=== PATIENT | female | born 1995 | race Caucasian/White ===

== ENCOUNTER 2017-08-02 21:18 | Emergency (ER) | payer BC ==
[~2017-08-02] VITALS: Ht 167.6 cm; Wt 124.4 kg
[2017-08-02 21:22] VITALS: BP 146/73
[2017-08-02] MEDS ORDERED: DIPHENHYDRAMINE 50 MG CAPSULE ONE (21:43)
[2017-08-02] MEDS ORDERED: FAMOTIDINE 20 MG TABLET ONE (21:43)
[2017-08-02] MEDS ORDERED: DIPHENHYDRAMINE 25 MG CAPSULE PO ONE (22:00)
[2017-08-02] MEDS ORDERED: FAMOTIDINE 20 MG TABLET PO ONE (22:00)
== END 2017-08-02 23:03 | disposition home or self-care (01) ==
LOC: ED 22:57
DX: T78.3XXA Angioneurotic edema, initial encounter (principal); L50.0 Allergic urticaria; Z87.891 Personal history of nicotine dependence; X58.XXXA Exposure to other specified factors, initial encounter; Y93.89 Activity, other specified; Y92.89 Other specified places as the place of occurrence of the external cause; Y99.8 Other external cause status
CPT/HCPCS: 99284; J7512; Q0163

== ENCOUNTER 2017-11-13 10:11 | Emergency (ER) | payer BC ==
[~2017-11-13] VITALS: Ht 167.6 cm; Wt 131.6 kg
[2017-11-13] MEDS ORDERED: GLAT40SY SQ (10:51)
[2017-11-13 11:28] LABS: INTERNATIONAL NORMALIZED RATIO 0.96 (0.93-1.1)
[2017-11-13 11:31] LABS: ALANINE AMINOTRANSFERASE 82 U/L (12-78); ALBUMIN 3.4 g/dL (3.4-5.0); ANION GAP 6 mmol/L (5-15); CALCIUM 8.1 mg/dL (8.5-10.1); CHLORIDE 111 mmol/L (98-107); CREATININE 0.86 mg/dL (0.55-1.02)
[2017-11-13 11:33] LABS: ALKALINE PHOSPHATASE 110 U/L (45-117); BILIRUBIN,TOTAL 0.3 mg/dL (0.2-1.0); TOTAL PROTEIN 7.1 g/dL (6.4-8.2)
[2017-11-13 11:53] LABS: BASOPHILS # (AUTO) 0.05 x10^3/uL (0-0.1); BASOPHILS % (AUTO) 1 % (0-1); EOSINOPHILS # (AUTO) 0.25 x10^3/uL (0-0.4); EOSINOPHILS % (AUTO) 3 % (1-7); LYMPHOCYTES # (AUTO) 2.57 x10^3/uL (1-3.4); LYMPHOCYTES % (AUTO) 30 % (22-44); MD SCAN; MEAN CORPUSCULAR HEMOGLOBIN 31.2 pg (27.0-34.8); MEAN CORPUSCULAR HGB CONC 34.2 g/dL (32.4-35.8); MEAN CORPUSCULAR VOLUME 91.2 fL (80-100); MEAN PLATELET VOLUME 10.7 fL (7.4-10.4); MONOCYTES # (AUTO) 0.64 x10^3/uL (0.2-0.8); MONOCYTES % (AUTO) 8 % (2-9); NEUTROPHILS # (AUTO) 4.94 x10^3/uL (1.8-6.8); NEUTROPHILS % (AUTO) 59 % (42-75); PLATELET COUNT 232 x10^3/uL (130-400); RED BLOOD COUNT 4.85 x10^6/uL (3.82-5.3); RED CELL DISTRIBUTION WIDTH 14.3 % (9.6-15.2)
[2017-11-13] MEDS ORDERED: SODIUM CHLORIDE FLUSH 10ML SYR IVF ONE (12:00)
[2017-11-13] MEDS ORDERED: SODIUM CHLORIDE 0.9% 1,000ML IVBOLUS ONE (12:00)
[2017-11-13] MEDS ORDERED: OMNIPAQUE 350 MG/ML, 150 ML BOTTLE ONE (13:45)
[2017-11-13 14:06] LABS: CLOSTRIDIUM DIFFICILE ANTIGEN NEGATIVE; CLOSTRIDIUM DIFFICILE TOXIN NEGATIVE (Negative)
[2017-11-13 14:34] VITALS: BP 118/59
== END 2017-11-13 14:45 | disposition home or self-care (01) ==
LOC: ED 10:45
DX: K57.10 Diverticulosis of small intestine without perforation or abscess without bleeding (principal); K92.1 Melena
CPT/HCPCS: 36415; 74177; 80053; 83690; 85025; 85610; 85730; 87324; 89055; 96360; 99285; J7030; Q9967

== ENCOUNTER 2018-10-20 00:26 | Emergency (ER) | payer BC ==
[~2018-10-20] VITALS: Ht 165.1 cm; Wt 121.3 kg
[~2018-10-20 00:26] MED LIST: GLAT40SY SQ
[2018-10-20 00:33] VITALS: BP 119/76
[2018-10-20] MEDS ORDERED: DIME240C PO (00:50)
[2018-10-20] MEDS ORDERED: DIPHENHYDRAMINE 25 MG CAPSULE PO ONE (01:00)
[2018-10-20] MEDS ORDERED: DEXAMETHASONE 4 MG TABLET PO ONE (01:00)
--- NOTE | 2018-10-20 01:00 | NUR ---
PT PRESENTED WITH LEFT SIDED LIP SWELLING AND GENERALIZED RASH. PT STATED SHE "TOOK AMOXICILLIN FOR SINUS INFECTION 2 DAYS AGO AND GOT SWELLING TO EYES THE FIRST DAY, THEN ITCHY, NOW TODAY GOT SWELLING ON LIP" DENIES ANY RESP DISTRESS, SOB. MONITOR APPLIED, SIDERAILS UP X2, CALL LIGHT WITHIN REACH.
[2018-10-20] MEDS ORDERED: DIPHENHYDRAMINE 25 MG CAPSULE ONE (01:01)
[2018-10-20] MEDS ORDERED: DEXAMETHASONE 4 MG TABLET ONE (01:02)
--- NOTE | 2018-10-20 01:06 | NUR ---
PT MEDICATED PER MAR
== END 2018-10-20 01:24 | disposition home or self-care (01) ==
LOC: ED 01:00
DX: L50.0 Allergic urticaria (principal)
CPT/HCPCS: 99283; Q0163

== ENCOUNTER 2018-11-01 03:11 | Emergency (ER) | payer BC ==
[~2018-11-01 03:11] MED LIST changes: +DIME240C PO
--- NOTE | 2018-11-01 03:27 | NUR ---
PT C/O SWOLLEN LIPS. IT STARTED AROUND NOON YESTERDAY. PT REPORTS SHE IS TAKING HER TECFIDERA AGAIN. "THIS HAPPENED TO ME TWO WEEKS AGO." NO AIRWAY COMPROMISE AT THIS TIME. VS STABLE. DR GILLIAM HAS SEEN PATIENT. CALL LIGHT IN PLACE. WILL CONTINUE TO MONITOR.
[2018-11-01] MEDS ORDERED: DIPHENHYDRAMINE 50 MG/ML, 1ML IVPush ONE (03:30)
[2018-11-01] MEDS ORDERED: methylPREDNISolone SOD SUCC 125 MG/2 ML IVPush ONE (03:30)
[2018-11-01] MEDS ORDERED: FAMOTIDINE 20 MG/2 ML IVPush ONE (03:30)
[2018-11-01] MEDS ORDERED: EPINEPHRINE 1 MG/ML, 1ML SQ ONE (03:30)
[2018-11-01] MEDS ORDERED: DIPHENHYDRAMINE 50 MG/ML, 1ML ONE (03:32)
[2018-11-01] MEDS ORDERED: methylPREDNISolone SOD SUCC 125 MG/2 ML ONE (03:32)
[2018-11-01] MEDS ORDERED: FAMOTIDINE 20 MG/2 ML ONE (03:32)
[2018-11-01] MEDS ORDERED: EPINEPHRINE 1 MG/ML, 1ML ONE (03:44)
[2018-11-01 04:08] LABS: BASOPHILS # (AUTO) 0.03 x10^3/uL (0-0.1); BASOPHILS % (AUTO) 0 % (0-1); EOSINOPHILS # (AUTO) 0.13 x10^3/uL (0-0.4); EOSINOPHILS % (AUTO) 1 % (1-7); LYMPHOCYTES # (AUTO) 2.39 x10^3/uL (1-3.4); LYMPHOCYTES % (AUTO) 24 % (22-44); MD NO; MEAN CORPUSCULAR HEMOGLOBIN 30.6 pg (27.0-34.8); MEAN CORPUSCULAR HGB CONC 34.3 g/dL (32.4-35.8); MEAN CORPUSCULAR VOLUME 89.2 fL (80-100); MONOCYTES # (AUTO) 0.55 x10^3/uL (0.2-0.8); MONOCYTES % (AUTO) 6 % (2-9); NEUTROPHILS # (AUTO) 6.82 x10^3/uL (1.8-6.8); NEUTROPHILS % (AUTO) 69 % (42-75); PLATELET COUNT 180 x10^3/uL (130-400); RED BLOOD COUNT 4.77 x10^6/uL (3.82-5.3); RED CELL DISTRIBUTION WIDTH 13.9 % (9.6-15.2)
[2018-11-01 04:09] LABS: ALBUMIN 3.9 g/dL (3.4-5.0); ANION GAP 8 mmol/L (5-15); CALCIUM 8.8 mg/dL (8.5-10.1); CHLORIDE 111 mmol/L (98-107); CREATININE 0.73 mg/dL (0.55-1.02)
--- NOTE | 2018-11-01 04:10 | NUR ---
PT RESTING ROOM. REGULAR RESP. NO ACUTE DISTRESS NOTED. 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 FAMILY AT BEDSIDE. CALL LIGHT IN PLACE. WILL CONTINUE TO MONITOR.
--- NOTE | 2018-11-01 04:44 | NUR ---
PT RESTING IN ROOM. SOME SWELLING IN LIPS HAS GONE DOWN. MOTHER AT BEDSIDE. NO ACUTE DISTRESS NOTED. VS STABLE. WILL CONTINUE TO MONITOR.
[2018-11-01 05:16] VITALS: BP 116/63
--- NOTE | 2018-11-01 05:16 | NUR ---
PT RESTING IN ROOM. NO ACUTE DISTRESS NOTED. FAMILY AT BEDSIDE. BALLOON DIPPER ON. WILL CONTINUE TO MONITOR.
--- NOTE | 2018-11-01 05:40 | NUR ---
DR ALLEN HAD UPDATED PATIENT PATIENT READY FOR D/C
== END 2018-11-01 05:42 | disposition home or self-care (01) ==
LOC: ED 04:58
DX: T78.3XXA Angioneurotic edema, initial encounter (principal); Z87.19 Personal history of other diseases of the digestive system
CPT/HCPCS: 36415; 80048; 82040; 84703; 85025; 96372; 96374; 96375; 99283; J0171; J1200; J2930; J3490

== ENCOUNTER 2018-12-02 20:59 | Emergency (ER) | payer BC ==
[~2018-12-02] VITALS: Ht 167.6 cm; Wt 119.0 kg
[2018-12-02 21:11] VITALS: BP 116/69
[2018-12-02 21:54] LABS: MEAN CORPUSCULAR HGB CONC 32.6 g/dL (32.4-35.8); MEAN CORPUSCULAR VOLUME 88.8 fL (80-100); MEAN PLATELET VOLUME 11.1 fL (7.4-10.4); PLATELET COUNT 137 x10^3/uL (130-400); RED BLOOD COUNT 5.07 x10^6/uL (3.82-5.3); RED CELL DISTRIBUTION WIDTH 13.8 % (9.6-15.2)
[2018-12-02 21:59] LABS: ALBUMIN 3.9 g/dL (3.4-5.0); ANION GAP 4 mmol/L (5-15); CALCIUM 8.8 mg/dL (8.5-10.1); CHLORIDE 109 mmol/L (98-107); CREATININE 1.07 mg/dL (0.55-1.02)
[2018-12-02 22:05] LABS: ALANINE AMINOTRANSFERASE 30 U/L (12-78); ALKALINE PHOSPHATASE 108 U/L (45-117); BILIRUBIN,TOTAL 0.4 mg/dL (0.2-1.0); TOTAL PROTEIN 7.8 g/dL (6.4-8.2)
--- NOTE | 2018-12-02 22:47 | NUR ---
pt to room from lobby
[2018-12-02 22:48] LABS: BASOPHILS # (AUTO) 0.04 x10^3/uL (0-0.1); BASOPHILS % (AUTO) 0 % (0-1); EOSINOPHILS # (AUTO) 0.14 x10^3/uL (0-0.4); EOSINOPHILS % (AUTO) 1 % (1-7); LYMPHOCYTES # (AUTO) 2.19 x10^3/uL (1-3.4); LYMPHOCYTES % (AUTO) 22 % (22-44); MD SCAN; MONOCYTES # (AUTO) 0.66 x10^3/uL (0.2-0.8); MONOCYTES % (AUTO) 7 % (2-9); NEUTROPHILS # (AUTO) 7.11 x10^3/uL (1.8-6.8); NEUTROPHILS % (AUTO) 70 % (42-75)
--- NOTE | 2018-12-02 23:53 | NUR ---
CT PENDING NEGATIVE HCG
[2018-12-03 00:07] LABS: HCG UR SG 1.024 (1.003-1.030)
[2018-12-03 00:08] LABS: CULTURE INDICATED? YES; MICROSCOPIC INDICATED
== END 2018-12-03 01:45 | disposition home or self-care (01) ==
LOC: ED 23:58
DX: R10.32 Left lower quadrant pain (principal)
CPT/HCPCS: 36415; 74176; 80053; 81001; 81025; 83690; 85025; 87086; 99284

== ENCOUNTER → 2019-10-02 | Outpatient (CLI) | payer BC ==
[~2019-10-02] MED LIST changes: +GADOTERATE 10 MMOL/20 ML SYR ONE; +OMNIPAQUE 350 MG/ML, 100ML BOTTLE ONE
== END | disposition home or self-care (01) ==
LOC: RAD 11:01
PROVIDERS: ATTEND Nurse Practitioner Family
DX: M47.812 Spondylosis without myelopathy or radiculopathy, cervical region (principal); M51.24 Other intervertebral disc displacement, thoracic region; N85.8 Other specified noninflammatory disorders of uterus; G93.9 Disorder of brain, unspecified; G35 Multiple sclerosis; G95.9 Disease of spinal cord, unspecified; Z97.5 Presence of (intrauterine) contraceptive device
CPT/HCPCS: 70553; 72156; 72157; 74177; A9575; Q9967